=== PATIENT | male | born 1950 | race Caucasian/White ===

== ENCOUNTER 2017-11-20 06:36 | Day surgery (SDC) | payer OTHER, MEDICARE ==
[2017-11-17 15:00] VITALS: BMI 38.3
[2017-11-20] MEDS ORDERED: PROPOFOL 20 ML ONE ×2 (08:10)
[2017-11-20] MEDS ORDERED: SUCCINYLCHOLINE CHLORIDE 200 MG/10 ML VIAL ONE (08:10)
[2017-11-20 08:54] VITALS: TEMP 97.6
[2017-11-20 09:32] VITALS: BP 107/72; PULSE 63
--- NOTE | 2017-11-21 17:13 | PATH ---
Surgical Pathology Report Patient Name: KRISTINE CEVALLOS [facility]. Rec. #: [id number] /Age/Gender: 1950 (Age: 67) / M Account: [id number] Location: ASU-ENDOSCOPY Taken: 11/20/2017 Received: 11/20/2017 Reported: 11/21/2017 Physicians: Loki Rodrigez M.D. Specimen(s) Received A: POLYP FROM PROXIMAL TRANSVERSE B: POLYP FROM CECUM COLD SNARE C: POLYP SIGMOID Clinical History Personal history of colonic polyps, screening Final Diagnosis A. PROXIMAL TRANSVERSE COLON, POLYP, POLYPECTOMY: TUBULAR ADENOMA. B. CECUM, POLYP, POLYPECTOMY: TUBULAR ADENOMA. C. SIGMOID COLON, POLYP, POLYPECTOMY: TUBULAR ADENOMA. Electronically Signed Janette Carter M.D. Gross Description A. Received in formalin, labeled "proximal transverse" is a rene, irregular portion of soft tissue measuring 0.4 cm. in greatest dimension. The specimen is submitted in toto in one cassette. B. Received in formalin, labeled "cecum" is a rene, irregular portion of soft tissue measuring 0.1 cm. in greatest dimension. The specimen is submitted in toto in one cassette. C. Received in formalin, labeled "sigmoid colon" is a rene, irregular portion of soft tissue measuring 0.3 cm. in greatest dimension. The specimen is submitted in toto in one cassette. HARDY/11/20/2017 huang/11/20/2017
== END 2017-11-20 09:30 | disposition home or self-care (01) ==
LOC: JASU-ENDO 06:36
PROVIDERS: ATTEND Internal Medicine Gastroenterology
PROC: 0DBL8ZX Excision of Transverse Colon, Via Natural or Artificial Opening Endoscopic, Diagnostic (ICD-10-PCS; 2017-11-20)
PROC: 0DBN8ZX Excision of Sigmoid Colon, Via Natural or Artificial Opening Endoscopic, Diagnostic (ICD-10-PCS; 2017-11-20)
PROC: 0DBH8ZX Excision of Cecum, Via Natural or Artificial Opening Endoscopic, Diagnostic (ICD-10-PCS; principal; 2017-11-20 08:00)
DX: Z86.010 Personal history of colon polyps (principal); D12.0 Benign neoplasm of cecum; D12.5 Benign neoplasm of sigmoid colon; D12.3 Benign neoplasm of transverse colon; K57.30 Diverticulosis of large intestine without perforation or abscess without bleeding
CPT/HCPCS: 82962; 88305-TC

== ENCOUNTER 2019-05-17 14:42 | Emergency (ER) | payer OTHER, MEDICARE ==
[2019-05-17 15:02] VITALS: BP 170/85; PULSE 66; TEMP 98.2; BMI 39.9
--- NOTE | 2019-05-17 16:52 | PDOC ---
Documentation entered by Gaurav Jimenez SCRIBE, acting as scribe for Vikas Lee MD. Vikas Lee MD: This documentation has been prepared by the collinseTony Aiswarya, SCRIBE, under my direction and personally reviewed by me in its entirety. I confirm that the documentation accurately reflects all work, treatment, procedures, and medical decision making performed by me. History of Present Illness - General Chief Complaint: Pain Stated Complaint: RIGHT LEG PAIN Time Seen by Provider: 05/17/19 14:51 History Source: Patient Exam Limitations: No Limitations - History of Present Illness Initial Comments: 05/17/19 15:23 The patient is a 68 year old male, with a significant PMH of diabetes, HTN and HLD, who presents to the emergency department with 3 days of right leg swelling. The patient states he noticed for the past few days that his right leg is more swollen than the left and endorses associated symptoms of leg cramps when lying down. He mentions that he drives to [place] from [place] at least once a month, last trip was Apr.12. The patient denies chest pain, shortness of breath, headache and dizziness. Denies any numbness or tingling. Denies any trauma to the leg or falls. No recent history of blood clots and has not Allergies: Penicillin Past surgical history: None reported Social history: None reported PCP: Cody Lomeli Past History - Past Medical History Allergies/Adverse Reactions: Allergies Allergy/AdvReac Type Severity Reaction Status Date / Time Penicillins Allergy Verified 05/17/19 14:44 Home Medications: Ambulatory Orders Losartan Potassium 100 mg PO DAILY 09/06/15 Simvastatin 10 mg PO DAILY 09/06/15 metFORMIN HCL [Metformin ER Osmotic] 1,000 mg PO BID 09/06/15 Cyanocobalamin (Vitamin B-12) [Vitamin B-12] 1,000 mcg PO ASDIR 09/20/15 Aspirin [Adult Aspirin] 81 mg PO DAILY 11/17/17 Atenolol/Chlorthalidone [Atenolol-Chlorthalidone 50-25] 1 each PO DAILY Walton-3 Acid Ethyl Esters [Lovaza] 2 gm PO BID 11/17/17 Cholecalciferol (Vitamin D3) [Vitamin D3] 5,000 unit PO DAILY 05/17/19 Cyanocobalamin [Vitamin B12 -] 100 mcg PO DAILY 05/17/19 Sildenafil Citrate [Sildenafil] 20 mg PO ASDIR 05/17/19 Diabetes: Yes HTN: Yes Hypercholesterolemia: Yes - Immunization History Immunization Up to Date: Yes - Psycho Social/Smoking Cessation Hx Smoking History: Never smoked Have you smoked in the past 12 months: No Hx Alcohol Use: No (OCC) Drug/Substance Use Hx: No Substance Use Type: None Review of Systems - Review of Systems Able to Perform ROS?: Yes Comments:: 05/17/19 15:24 A complete review of 10 out of 10 review of systems is taken and is negative apart from what is previously mentioned below and in the HPI. *Physical Exam - Vital Signs Last Vital Signs Temp Pulse Resp BP Pulse Ox 98.2 F 66 18 170/85 96 05/17/19 14:42 05/17/19 14:42 05/17/19 14:42 05/17/19 14:42 05/17/19 14:42 - Physical Exam 05/17/19 15:24 Vitals: Triage Vital signs reviewed General Appearance: no acute distress, well nourished well developed, Cardiac: Regular rate and rhythm, no murmurs, no rubs, no gallops, Lungs: Clear to auscultation bilateral, good air movement bilaterally, Extremities: +1 pitting edema bilaterally to the legs. Full range of motion to all extremities, no cyanosis, clubbing. Skin: Warm and dry, no rashes or lesions, no petechiae Neuro: AOX3; Strength intact to all extremities, Sensation intact to all extremities. Psych: normal mood, normal affect ED Treatment Course - RADIOLOGY Radiology Studies Ordered: Category Date Time Status DUPLEX VASCUL US-1 LEG [US] Stat Ultrasound 05/17/19 15:10 Completed Medical Decision Making - Medical Decision Making 05/17/19 16:51 Right calf swelling and pain no chest pain no shortness of breath no ultrasound evidence of DVT noted Patient will return home he will follow-up in 2 weeks if any persistence of symptoms or for any concerns Findings, the need for follow-up and strict return instructions discussed with patient. Discharge - Discharge Information Problems reviewed: Yes Clinical Impression/Diagnosis: Leg swelling Condition: Stable - Admission No - Follow up/Referral Referrals: Cody Lomeli MD [Primary Care Provider] - - Patient Discharge Instructions Patient Printed Discharge Instructions: DI for Leg Pain Additional Instructions: Follow-up with your primary care provider. Return to the emergency department within 2-week for a repeat ultrasound for any persistence of symptoms return to the emergency department immediately for any chest pain shortness of breath or for any concerns. - Post Discharge Activity
== END 2019-05-17 17:05 | disposition home or self-care (01) ==
LOC: FER 14:42
DX: M79.89 Other specified soft tissue disorders (principal); Z88.0 Allergy status to penicillin; E78.00 Pure hypercholesterolemia, unspecified; E11.9 Type 2 diabetes mellitus without complications; I10 Essential (primary) hypertension
CPT/HCPCS: 93971-TC; 99282-25